=== PATIENT | female | born 1960 | race Caucasian/White ===

== ENCOUNTER 2017-04-17 10:05 | Emergency (ER) | payer OTHER ==
[~2017-04-17] VITALS: Ht 154.9 cm; Wt 81.7 kg
[2017-04-17 10:39] LABS: HEMOGLOBIN 13.6 gm/dL (12.0-15.0); MCH 30.4 pg (26.0-34.0); MCV 89.4 fL (80.0-100.0); RBC 4.47 mil/uL (4.20-5.00); RDW 13.7 % (10.5-14.5); WBC 9.2 thou/uL (4.0-11.0)
[2017-04-17 10:49] LABS: CALCIUM 8.9 mg/dL (8.5-10.1); CREATININE 0.9 mg/dL (0.6-1.0); POTASSIUM 3.2 mmol/L (3.5-5.1)
[2017-04-17 10:54] LABS: TOTAL BILIRUBIN 0.4 mg/dL (<0.1-1.0)
[2017-04-17] MEDS ORDERED: HYDROCODONE-AP1 EAC6 PO (11:04)
[2017-04-17] MEDS ORDERED: LOPRESSOR50 PO (11:04)
[2017-04-17] MEDS ORDERED: MOBIC15 MG PO (11:04)
[2017-04-17 11:37] VITALS: BP 201/100
== END 2017-04-17 11:39 | disposition home or self-care (01) ==
LOC: ER 10:05
PROVIDERS: Physician Assistant
DX: S42.202A Unspecified fracture of upper end of left humerus, initial encounter for closed fracture (principal); I10 Essential (primary) hypertension; Z91.14 Patient's other noncompliance with medication regimen; W18.39XA Other fall on same level, initial encounter; Y93.89 Activity, other specified; Y92.89 Other specified places as the place of occurrence of the external cause; Y99.8 Other external cause status